=== PATIENT | male | born 1990 | race African-American/Black ===

== ENCOUNTER 2016-09-12 22:52 | Emergency (ER) | payer SELFPAY ==
[~2016-09-12] VITALS: Ht 167.6 cm; Wt 75.0 kg
[~2016-09-12 22:52] MED LIST: DONNTAB12 PO; OMEP20CA5 PO; PRED20 PO; SUCR1TAB6 PO; SULF-154 PO; SULF1TAB47 PO; TRAM50 PO; Z.0.NO CURRENT MEDS; Z.0.UNABLE TO OBTAIN
[2016-09-12 22:53] VITALS: BP 145/91; PULSE 90; RESP 20; TEMP 98.2; O2SAT 98
--- NOTE | 2016-09-12 23:20 | PD ---
HPI Chief Complaint: ENT Complaint Time Seen by Provider: 23:10 Travel History International Travel<30 days: No Contact w/Intl Traveler<30days: No Traveled to known affect area: No History of Present Illness HPI 26-year-old male presents for evaluation of pain and soft tissue swelling to the left earlobe. Symptoms started yesterday. It hurts to palpation. Denies drainage, fevers, chills, trauma. He reports frequent episodes of cyst and abscess formation in the past. He has no other complaints at this time. PFSH Past Medical History ADHD: No Cancer: No Cardiovascular Problems: No Cerebrovascular Accident: No Diabetes: No Diminished Hearing: No Gastrointestinal Disorders: No Genitourinary: No Musculoskeletal: No Neurologic: No Psychiatric: No Reproductive: No Respiratory: No Migraines: No Seizures: No Thyroid Disease: No Ulcer: No Past Surgical History Appendectomy: No Cholecystectomy: No Other Surgery: Yes (DONATED BONE MARROW X2 FOR MOTHER) Social History Alcohol Use: Yes (1 daily) Tobacco Use: Yes (1/2 daily) Substance Use: Yes (MARIJUANA LAST USED YESTERDAY) Allergies-Medications (Allergen,Severity, Reaction): Coded Allergies: No Known Allergies (Verified , 09/12/16) Reported Meds & Prescriptions Reported Meds & Active Scripts Active Keflex (Cephalexin) 500 Mg Cap 500 Mg PO Q8H 7 Days Bactrim DS (Sulfamethoxazole-Trimethoprim) 800-160 Mg Tab 1 Tab PO BID Deltasone (Prednisone) 20 Mg Tab 20 Mg PO BID Septra Ds (Trimethoprim/Sulfamethoxazole) Tab 1 Tab PO BID 1 Tab PO Q8HPRN Carafate (Sucralfate) 1 Gm Tab 1 Gm PO TIDACHS Prilosec 20 mg (Omeprazole) 20 Mg Capcr 1 Tab PO DAILY Ultram (Tramadol HCl) 50 Mg Tab 1 Tab PO Q6HPRN FOR PAIN Ultram (Tramadol HCl) 50 Mg Tab 1 Tab PO Q6HPRN FOR PAIN Bactrim Ds (Trimethoprim/Sulfamethoxazole) Tab 1 Tab PO BID Reported Unable To Obtain Medication History (Miscellaneous Medication) Misc No Current Meds (Miscellaneous Medication) Misc Review of Systems Except as stated in HPI: all other systems reviewed are Neg Physical Exam Narrative GENERAL: Well-developed well-nourished male in no acute distress SKIN: Warm and dry. The patient has a 1 cm area of fluctuance and erythema to the left earlobe. Tender to palpation. No drainage. No puncture wounds. HEAD: Atraumatic. Normocephalic. EYES: Pupils equal and round. No scleral icterus. No injection or drainage. ENT: No nasal bleeding or discharge. Mucous membranes pink and moist. NECK: Trachea midline. No JVD. CARDIOVASCULAR: Regular rate and rhythm. No murmur appreciated. RESPIRATORY: No accessory muscle use. Clear to auscultation. Breath sounds equal bilaterally. Data Data Last Documented VS Vital Signs Date Time Temp Pulse Resp B/P Pulse Ox O2 Delivery O2 Flow Rate FiO2 09/12/16 22:53 98.2 90 20 145/91 98 Orders Lidocai-Epi 1%-1:100,000 Inj (Xylocaine- (09/12/16 23:30) Wound Culture And Gram Stain (09/12/16 23:18) Ibuprofen (Motrin) (09/13/16 00:15) MDM Medical Decision Making Medical Screen Exam Complete: Yes Emergency Medical Condition: Yes Medical Record Reviewed: Yes Differential Diagnosis Infected cyst, abscess, auricular hematoma, cellulitis Narrative Course Incision and drainage was performed, the patient verbally consented, revealing an infected cutaneous cyst. Wound culture was performed. The patient is being discharged with Bactrim and Keflex. He is encouraged to follow-up with a aviation manager or an ENT specialist for definitive surgical cyst removal. Procedures Procedure Narrative INCISION AND DRAINAGE OF CYST: The area was prepped and was sterilely draped. A subcutaneous wheal of 1% Xylocaine with epinephrine with a total number 4 mL was used to anesthetize the area. The area was properly anesthetized. A number 11 scalpel was used to make a 0.3 -cm incision across the area of the abscess. Cultures were obtained. The abscess was drained an irrigated with normal saline. Diagnosis Primary Impression: Infected cyst of skin Additional Instructions: Take the antibiotics as prescribed. Take Tylenol or ibuprofen for discomfort. Warm compresses several times a day 10 minutes at a time. Follow-up with an ENT specialist or aviation manager for definitive cyst removal if desired. Return for any new or worsening symptoms. Med/Other Pt SpecificInfo: Prescription(s) given, Wound Care Scripts Cephalexin (Keflex)500 Mg Uah052 Mg PO Q8H 7 Days Ref 0 Prov:Rahul Navarro MD 09/13/16 Sulfamethoxazole-Trimethoprim (Bactrim DS)800-160 Mg Tab1 Tab PO BID #14 TAB Ref 0 Prov:Rahul Navarro MD 09/13/16 Disposition: 01 DISCHARGE HOME Condition: Stable Capo Mccall Sep 12, 2016 23:20
[2016-09-12] MEDS ORDERED: LIDOCAINE 1%/EPINEPHrine 1:100,000 SOLN 20 ML VIAL INFIL ONE (23:30)
[2016-09-13] MEDS ORDERED: CEPH-460 PO (00:13)
[2016-09-13] MEDS ORDERED: BACT800T5 PO (00:13)
[2016-09-13] MEDS ORDERED: IBUPROFEN 800 MG TAB PO ONE (00:15)
== END 2016-09-13 00:39 | disposition home or self-care (01) ==
LOC: NEPB 22:52
DX: L08.89 Other specified local infections of the skin and subcutaneous tissue (principal); L72.8 Other follicular cysts of the skin and subcutaneous tissue; Z72.0 Tobacco use
CPT/HCPCS: 10060; 86403; 87070

== ENCOUNTER 2016-09-20 20:40 | Emergency (ER) | payer SELFPAY ==
[~2016-09-20] VITALS: Ht 162.6 cm; Wt 70.0 kg
[~2016-09-20 20:40] MED LIST changes: +BACT800T5 PO; +CEPH-460 PO
[2016-09-20 20:41] VITALS: BP 138/78; PULSE 94; RESP 18; TEMP 98.7; O2SAT 98
[2016-09-20 20:44] VITALS: BP_SYST 152; BP_SYST 159; BP_DIAS 86; BP_DIAS 91; RESP 17
[2016-09-20 21:12] LABS: AUTOMATED NEUTROPHIL # 7.8 TH/MM3 (1.8-7.7); BASOPHIL # 0.1 TH/MM3 (0-0.2); BASOPHIL % 0.7 % (0.0-2.0); EOSINOPHIL # 0.2 TH/MM3 (0-0.4); EOSINOPHIL % 1.7 % (0.0-4.0); HEMATOCRIT 45.7 % (39.0-51.0); HEMO FLAGS DIFF FINAL; LYMPH % 28.8 % (9.0-44.0); LYMPHOCYTE # 3.7 TH/MM3 (1.0-4.8); MEAN CELL VOLUME 82.8 FL (80.0-100.0); MEAN CORPUSCULAR HEMOGLOBIN 27.8 PG (27.0-34.0); MEAN CORPUSCULAR HGB CONC 33.5 % (32.0-36.0); MONO % 7.8 % (0.0-8.0); PLATELET COUNT 276 TH/MM3 (150-450); RED BLOOD COUNT 5.52 MIL/MM3 (4.50-5.90); RED CELL DISTRIBUTION WIDTH 14.6 % (11.6-17.2); WHITE BLOOD COUNT 12.7 TH/MM3 (4.0-11.0)
[2016-09-20 21:30] LABS: BLOOD, URINE NEG (NEG); GLUCOSE,URINE NEG (NEG); KETONE, URINE NEG (NEG); NITRITE,URINE NEG (NEG); PH, URINE 5.5 (5.0-8.5); URINE COLOR COLORLESS (YELLW/STRAW)
[2016-09-20 21:37] LABS: COMMENT (UR) CULT NOT INDICATED; CULTURE IF INDICATED CULT NOT INDICATED
[2016-09-20 21:52] LABS: ALKALINE PHOSPHATASE 88 U/L (45-117); ALT (GPT) 28 U/L (12-78); ANION GAP 9 MEQ/L (5-15); AST (GOT) 26 U/L (15-37); BICARBONATE 23.5 MEQ/L (21.0-32.0); BLOOD UREA NITROGEN 6 MG/DL (7-18); CHLORIDE 107 MEQ/L (98-107); GLOMERULAR FILTRATION RATE 160 ML/MIN (>89); POTASSIUM 3.8 MEQ/L (3.5-5.1); SODIUM (NA) 139 MEQ/L (136-145); TOTAL BILIRUBIN ADULT 0.2 MG/DL (0.2-1.0)
--- NOTE | 2016-09-20 22:21 | RADRPT ---
EXAM DATE/TIME: 09/20/2016 22:11 [facility] COMPARISON: No previous studies available for comparison. INDICATIONS : Left wrist pain, fell MEDICAL HISTORY : None. SURGICAL HISTORY : None. ENCOUNTER: Initial ACUITY: 1 day PAIN SCORE: 8/10 LOCATION: Left Wrist FINDINGS: Three view examination of the left wrist demonstrates no soft tissue swelling, dislocation, or fractu re. The carpal bones are in normal alignment. The joint spaces are maintained. Bony mineralization is normal. CONCLUSION: No acute disease. Robert Ambriz MD on September 20, 2016 at 22:19 Board Certified Radiologist. This report was verified electronically.
--- NOTE | 2016-09-20 22:22 | RADRPT ---
EXAM DATE/TIME: 09/20/2016 22:10 [facility] COMPARISON: No previous studies available for comparison. INDICATIONS : Left proximal hand pain, fell MEDICAL HISTORY : None. SURGICAL HISTORY : None. ENCOUNTER: Initial ACUITY: 1 day PAIN SCORE: 8/10 LOCATION: Left Hand FINDINGS: Three view examination of the left hand demonstrates no soft tissue swelling, dislocation, or fractur e. The carpal bones appear intact. The interphalangeal and metacarpophalangeal joints are intact. Bony mineralization is normal. CONCLUSION: No acute disease. Robert Ambriz MD on September 20, 2016 at 22:20 Board Certified Radiologist. This report was verified electronically.
--- NOTE | 2016-09-20 22:50 | PD ---
HPI Chief Complaint: Syncope/Near-Syncope Time Seen by Provider: 21:06 Travel History International Travel<30 days: No Contact w/Intl Traveler<30days: No Traveled to known affect area: No History of Present Illness HPI The patient is 26 years old. He arrives from home after he experienced a loss of consciousness. He was cooking and fell to the ground landing primarily on his left wrist. He does not recall the events which followed however his significant other can provide the story. Evidently he was helped to his bed and then he tried to get himself out of bed in order to finish cooking. He fell to the ground yet again tried to help himself up however failed. He did return to normal after about 10 minutes of apparent altered mentation. Prior to the onset of this episode he had no diaphoresis, palpitations, shortness of breath, chest pain, headache or lightheadedness. He has no history of structural heart disease or any family history of sudden onset cardiac related . He denies any drug abuse however has tested positive on prior drug screens here for cannabis twice. He states he drinks about 2 cans of beer daily and smokes half pack of cigarettes daily. He works as a restaurant kitchen and service manager. He states he does not drink enough water daily and his significant other states the same. PFSH Past Medical History ADHD: No Cancer: No Cardiovascular Problems: No Cerebrovascular Accident: No Diabetes: No Diminished Hearing: No Gastrointestinal Disorders: No Genitourinary: No Musculoskeletal: No Neurologic: No Psychiatric: No Reproductive: No Respiratory: No Migraines: No Seizures: No Thyroid Disease: No Ulcer: No Past Surgical History Appendectomy: No Cholecystectomy: No Other Surgery: Yes (DONATED BONE MARROW X2 FOR MOTHER) Social History Alcohol Use: Yes (1 daily) Tobacco Use: Yes (1/2 daily) Substance Use: Yes (MARIJUANA LAST USED YESTERDAY) Allergies-Medications (Allergen,Severity, Reaction): Coded Allergies: No Known Allergies (Verified , 09/12/16) Reported Meds & Prescriptions Reported Meds & Active Scripts Active Keflex (Cephalexin) 500 Mg Cap 500 Mg PO Q8H 7 Days Bactrim DS (Sulfamethoxazole-Trimethoprim) 800-160 Mg Tab 1 Tab PO BID Deltasone (Prednisone) 20 Mg Tab 20 Mg PO BID Septra Ds (Trimethoprim/Sulfamethoxazole) Tab 1 Tab PO BID 1 Tab PO Q8HPRN Carafate (Sucralfate) 1 Gm Tab 1 Gm PO TIDACHS Prilosec 20 mg (Omeprazole) 20 Mg Capcr 1 Tab PO DAILY Ultram (Tramadol HCl) 50 Mg Tab 1 Tab PO Q6HPRN FOR PAIN Ultram (Tramadol HCl) 50 Mg Tab 1 Tab PO Q6HPRN FOR PAIN Bactrim Ds (Trimethoprim/Sulfamethoxazole) Tab 1 Tab PO BID Reported Unable To Obtain Medication History (Miscellaneous Medication) Misc No Current Meds (Miscellaneous Medication) Misc Review of Systems Except as stated in HPI: all other systems reviewed are Neg Musculoskeletal: Positive: Pain Neurologic: Positive: Syncope, Change in Mentation Physical Exam Narrative GENERAL: 26-year-old male well-nourished well-developed SKIN: Warm and dry. HEAD: Atraumatic. Normocephalic. EYES: Pupils equal and round. No scleral icterus. No injection or drainage. ENT: No nasal bleeding or discharge. Mucous membranes pink and moist. NECK: Trachea midline. No JVD. CARDIOVASCULAR: Regular rate and rhythm. No murmur appreciated. RESPIRATORY: No accessory muscle use. Clear to auscultation. Breath sounds equal bilaterally. GASTROINTESTINAL: Abdomen soft, non-tender, nondistended. Hepatic and splenic margins not palpable. MUSCULOSKELETAL: No obvious deformities. No clubbing. No cyanosis. No edema. No snuffbox tenderness on the left side are either side. Minimal tenderness along the ulnar aspect of the distal forearm on the left side. Handgrip 5 over 5 bilaterally. NEUROLOGICAL: Awake and alert. No obvious cranial nerve deficits. Motor grossly within normal limits. Normal speech. PSYCHIATRIC: Appropriate mood and affect; insight and judgment normal. Data Data Last Documented VS Vital Signs Date Time Temp Pulse Resp B/P Pulse Ox O2 Delivery O2 Flow Rate FiO2 09/20/16 20:44 103 17 152/86 100 17 159/91 09/20/16 20:44 Room Air 09/20/16 20:41 98.7 98 No evidence of orthostasis. Pulse improved on my exam to the 80s Orders Complete Blood Count With Diff (09/20/16 20:55) Comprehensive Metabolic Panel (09/20/16 20:55) Urinalysis - C+S If Indicated (09/20/16 20:55) Electrocardiogram (09/20/16 ) Wrist, Complete ([id number]) (09/20/16 ) Hand, Complete ([id number]) (09/20/16 ) ^ Randall Bandage (09/20/16 22:46) Labs Laboratory Tests Test 09/20/16 20:50 White Blood Count 12.7 TH/MM3 Red Blood Count 5.52 MIL/MM3 Hemoglobin 15.3 GM/DL Hematocrit 45.7 % Mean Corpuscular Volume 82.8 FL Mean Corpuscular Hemoglobin 27.8 PG Mean Corpuscular Hemoglobin 33.5 % Concent Red Cell Distribution Width 14.6 % Platelet Count 276 TH/MM3 Mean Platelet Volume 9.0 FL Neutrophils (%) (Auto) 61.0 % Lymphocytes (%) (Auto) 28.8 % Monocytes (%) (Auto) 7.8 % Eosinophils (%) (Auto) 1.7 % Basophils (%) (Auto) 0.7 % Neutrophils # (Auto) 7.8 TH/MM3 Lymphocytes # (Auto) 3.7 TH/MM3 Monocytes # (Auto) 1.0 TH/MM3 Eosinophils # (Auto) 0.2 TH/MM3 Basophils # (Auto) 0.1 TH/MM3 CBC Comment DIFF FINAL Differential Comment Urine Color COLORLESS Urine Turbidity CLEAR Urine pH 5.5 Urine Specific [place] 1.004 Urine Protein NEG mg/dL Urine Glucose (UA) NEG mg/dL Urine Ketones NEG mg/dL Urine Occult Blood NEG Urine Nitrite NEG Urine Bilirubin NEG Urine Urobilinogen LESS THAN 2.0 MG/DL Urine Leukocyte Esterase NEG Urine WBC LESS THAN 1 /hpf Microscopic Urinalysis Comment CULT NOT INDICATED Sodium Level 139 MEQ/L Potassium Level 3.8 MEQ/L Chloride Level 107 MEQ/L Carbon Dioxide Level 23.5 MEQ/L Anion Gap 9 MEQ/L Blood Urea Nitrogen 6 MG/DL Creatinine 0.72 MG/DL Estimat Glomerular Filtration 160 ML/MIN Rate Random Glucose 76 MG/DL Calcium Level 8.0 MG/DL Total Bilirubin 0.2 MG/DL Aspartate Amino Transf 26 U/L (AST/SGOT) Alanine Aminotransferase 28 U/L (ALT/SGPT) Alkaline Phosphatase 88 U/L Total Protein 7.8 GM/DL Albumin 3.9 GM/DL MDM Medical Decision Making Medical Screen Exam Complete: Yes Emergency Medical Condition: Yes Medical Record Reviewed: Yes Differential Diagnosis Arrhythmia, EtOH intoxication, fall, syncope, polysubstance abuse, dehydration Narrative Course CBC & BMP Diagram 09/20/16 20:50 LFTs normal Urinalysis normal EKG reveals no pre-excitation morphology or evidence of structural heart disease Last 24 hours Impressions Wrist X-Ray 09/20/16 0000 Signed Impressions: Service Date/Time: Tuesday, September 20, 2016 22:11 - CONCLUSION: No acute disease. Robert Ambriz MD Hand X-Ray 09/20/16 0000 Signed Impressions: Service Date/Time: Tuesday, September 20, 2016 22:10 - CONCLUSION: No acute disease. Robert Ambriz MD Left hand x-ray: No fracture Left wrist x-ray: No fracture We discussed possible etiologies for the patient's apparent loss of consciousness. Certainly does not sound like a seizure given the coordinated attempt to finish cooking afterwards. Arrhythmogenic event as a consideration however less likely with a normal EKG and no personal or family history of arrhythmia or heart disease of which the patient is aware. 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 Patient does not have symptoms consistent with an occult scaphoid fracture. Return precautions discussed. Patient verbalized appreciation and is now ready for discharge. Diagnosis Primary Impression: LOC (loss of consciousness) Additional Impression: Left wrist injury Qualified Code: S69.92XA - Left wrist injury, initial encounter Referrals: Punch Molder 2 days Primary Care Physician 2 days Additional Instructions: You have a choice when it comes to health care, and we are glad that you chose [facility]. Hopefully, we have met your expectations on today's visit. You are welcome to return to [facility] at any time, as we are committed to meeting the health care needs of our community. Disposition: 01 DISCHARGE HOME Condition: Stable Rahul Navarro MD Sep 20, 2016 22:50
--- NOTE | 2016-09-21 10:45 | EKG ---
Date Performed: 09/20/2016 Time Performed: 20:49:34 PTAGE: 26 years EKG: Sinus rhythm LEFT ATRIAL ABNORMALITY RESOLVED FROM THE PRIOR TRACING NORMAL ECG PREVIOUS TRACING : 01/20/2016 21.08 DOCTOR: Praful Mauricio Interpretating Date/Time 09/21/2016 10:44:21
== END 2016-09-20 23:02 | disposition home or self-care (01) ==
LOC: NEDAMB 20:40
DX: R55 Syncope and collapse (principal); S69.92XA Unspecified injury of left wrist, hand and finger(s), initial encounter; F17.210 Nicotine dependence, cigarettes, uncomplicated; F12.90 Cannabis use, unspecified, uncomplicated; W18.39XA Other fall on same level, initial encounter; Y93.G3 Activity, cooking and baking; Y92.000 Kitchen of unspecified non-institutional (private) residence as the place of occurrence of the external cause
CPT/HCPCS: 73110; 73130; 80053; 81001; 85025; 93005

== ENCOUNTER 2016-11-26 01:15 | Emergency (ER) | payer OTHER ==
[~2016-11-26] VITALS: Ht 175.3 cm; Wt 85.0 kg
[2016-11-26 01:24] VITALS: BP 152/80; PULSE 102; RESP 16; TEMP 99; O2SAT 95
--- NOTE | 2016-11-26 01:34 | PD ---
HPI Chief Complaint: Psychiatric Symptoms Time Seen by Provider: 01:20 Travel History International Travel<30 days: No Contact w/Intl Traveler<30days: No Traveled to known affect area: No History of Present Illness HPI This is a 26-year-old male who presents under Castillo act initiated by [place] [employer]. According to his paperwork the patient called 911 and reported that he wanted to kill himself. When the police arrived he had already tied a rope to a tree and had fetched a chair. He was intending to hang himself. The patient reports that for the past 1.5 weeks he has been feeling depressed and suicidal. He reports that nothing in particular made him start feeling this way. He does endorse a desire to kill himself tonight. He denies any toxic ingestions, drug or alcohol use. He reports that 1 time approximately 7 years ago he attempted to kill himself by pushing a china cabinet on top of himself. He does not currently have a primary care physician and he does not see a psychiatrist. The patient seems somewhat hesitant to share information at this time. He has no medical complaints at this time. COUNT INCLUDES THE [facility] Past Medical History Medical History: Denies Significant Hx ADHD: No Cancer: No Cardiovascular Problems: No Cerebrovascular Accident: No Diabetes: No Diminished Hearing: No Gastrointestinal Disorders: No Genitourinary: No Musculoskeletal: No Neurologic: No Psychiatric: No Reproductive: No Respiratory: No Migraines: No Seizures: No Thyroid Disease: No Ulcer: No Influenza Vaccination: No Past Surgical History Appendectomy: No Cholecystectomy: No Other Surgery: Yes (DONATED BONE MARROW X2 FOR MOTHER 2009) Social History Alcohol Use: Yes (1 daily) Tobacco Use: Yes (1/2 daily) Substance Use: Yes (MARIJUANA ) Allergies-Medications (Allergen,Severity, Reaction): Coded Allergies: No Known Allergies (Verified , 09/12/16) Reported Meds & Prescriptions Reported Meds & Active Scripts Active No Active Prescriptions or Reported Medications Review of Systems Except as stated in HPI: all other systems reviewed are Neg Physical Exam Narrative GENERAL: Well-developed well-nourished male in no acute distress SKIN: Warm and dry. HEAD: Atraumatic. Normocephalic. EYES: Pupils equal and round. No scleral icterus. No injection or drainage. ENT: No nasal bleeding or discharge. Mucous membranes pink and moist. NECK: Trachea midline. No JVD. CARDIOVASCULAR: Regular rate and rhythm. No murmur appreciated. RESPIRATORY: No accessory muscle use. Clear to auscultation. Breath sounds equal bilaterally. GASTROINTESTINAL: Abdomen soft, non-tender, nondistended. Hepatic and splenic margins not palpable. MUSCULOSKELETAL: No obvious deformities. No clubbing. No cyanosis. No edema. NEUROLOGICAL: Awake and alert. No obvious cranial nerve deficits. Motor grossly within normal limits. Normal speech. PSYCHIATRIC: Depressed mood. Insight and judgment appears normal. Makes poor eye contact. Data Data Last Documented VS Vital Signs Date Time Temp Pulse Resp B/P Pulse Ox O2 Delivery O2 Flow Rate FiO2 11/26/16 01:24 99.0 102 16 152/80 95 Orders Complete Blood Count With Diff (11/26/16 01:30) Comprehensive Metabolic Panel (11/26/16 01:30) Psych Screen (11/26/16 01:30) Drug Screen, Random Urine (11/26/16 01:30) Alcohol (Ethanol) (11/26/16 01:30) Salicylates (Aspirin) (11/26/16 01:30) Tylenol (Acetaminophen) (11/26/16 01:30) ^ Sitter (11/26/16 01:31) Labs Laboratory Tests Test 11/26/16 01:30 White Blood Count 12.7 TH/MM3 Red Blood Count 5.85 MIL/MM3 Hemoglobin 16.2 GM/DL Hematocrit 48.6 % Mean Corpuscular Volume 83.0 FL Mean Corpuscular Hemoglobin 27.7 PG Mean Corpuscular Hemoglobin 33.3 % Concent Red Cell Distribution Width 14.9 % Platelet Count 231 TH/MM3 Mean Platelet Volume 9.5 FL Neutrophils (%) (Auto) 58.4 % Lymphocytes (%) (Auto) 28.4 % Monocytes (%) (Auto) 10.4 % Eosinophils (%) (Auto) 2.3 % Basophils (%) (Auto) 0.5 % Neutrophils # (Auto) 7.4 TH/MM3 Lymphocytes # (Auto) 3.6 TH/MM3 Monocytes # (Auto) 1.3 TH/MM3 Eosinophils # (Auto) 0.3 TH/MM3 Basophils # (Auto) 0.1 TH/MM3 CBC Comment DIFF FINAL Differential Comment Sodium Level 139 MEQ/L Potassium Level 3.7 MEQ/L Chloride Level 105 MEQ/L Carbon Dioxide Level 23.6 MEQ/L Anion Gap 10 MEQ/L Blood Urea Nitrogen 10 MG/DL Creatinine 0.88 MG/DL Estimat Glomerular Filtration 127 ML/MIN Rate Random Glucose 90 MG/DL Calcium Level 8.6 MG/DL Total Bilirubin 0.3 MG/DL Aspartate Amino Transf 29 U/L (AST/SGOT) Alanine Aminotransferase 32 U/L (ALT/SGPT) Alkaline Phosphatase 93 U/L Total Protein 8.6 GM/DL Albumin 4.2 GM/DL Salicylates Level 3.2 MG/DL Acetaminophen Level LESS THAN 2.0 MCG/ML Ethyl Alcohol Level 168 MG/DL [facility] Medical Decision Making Medical Screen Exam Complete: Yes Emergency Medical Condition: Yes Medical Record Reviewed: Yes Differential Diagnosis Major depressive disorder, depressive disorder not otherwise specified, adjustment reaction, acute psychosis, substance induced mood disorder, bipolar disorder Narrative Course 26-year-old male presents under Castillo act for suicidal ideation. Mental health screening discussed with the patient. Psychiatric screen ordered. A sitter has been ordered. Alcohol level is 168, otherwise lab work is unremarkable. The patient is medically cleared for psychiatric disposition. Diagnosis Primary Impression: Suicidal ideation Scripts No Active Prescriptions or Reported Meds Capo Mccall Nov 26, 2016 01:34
[2016-11-26 01:46] LABS: AUTOMATED NEUTROPHIL # 7.4 TH/MM3 (1.8-7.7); BASOPHIL # 0.1 TH/MM3 (0-0.2); BASOPHIL % 0.5 % (0.0-2.0); EOSINOPHIL # 0.3 TH/MM3 (0-0.4); EOSINOPHIL % 2.3 % (0.0-4.0); HEMATOCRIT 48.6 % (39.0-51.0); HEMO FLAGS DIFF FINAL; LYMPH % 28.4 % (9.0-44.0); LYMPHOCYTE # 3.6 TH/MM3 (1.0-4.8); MEAN CORPUSCULAR HEMOGLOBIN 27.7 PG (27.0-34.0); MEAN CORPUSCULAR HGB CONC 33.3 % (32.0-36.0); MONO % 10.4 % (0.0-8.0); NEUT % 58.4 % (16.0-70.0); PLATELET COUNT 231 TH/MM3 (150-450); RED BLOOD COUNT 5.85 MIL/MM3 (4.50-5.90); RED CELL DISTRIBUTION WIDTH 14.9 % (11.6-17.2); WHITE BLOOD COUNT 12.7 TH/MM3 (4.0-11.0)
[2016-11-26 02:17] LABS: ANION GAP 10 MEQ/L (5-15)
[2016-11-26 02:24] LABS: ALKALINE PHOSPHATASE 93 U/L (45-117); ALT (GPT) 32 U/L (12-78); AST (GOT) 29 U/L (15-37); BICARBONATE 23.6 MEQ/L (21.0-32.0); BLOOD UREA NITROGEN 10 MG/DL (7-18); CHLORIDE 105 MEQ/L (98-107); GLOMERULAR FILTRATION RATE 127 ML/MIN (>89); POTASSIUM 3.7 MEQ/L (3.5-5.1); SODIUM (NA) 139 MEQ/L (136-145); TOTAL BILIRUBIN ADULT 0.3 MG/DL (0.2-1.0)
[2016-11-26 02:29] LABS: ACETAMINOPHEN LESS THAN 2.0 MCG/ML (10.0-30.0)
[2016-11-26 08:31] VITALS: BP 132/72; PULSE 76; RESP 16; O2SAT 100
--- NOTE | 2016-11-26 10:29 | PD ---
History of Present Illness Chief Complaint: Psychiatric Symptoms Time Seen by Provider: 10:00 Travel History International Travel<30 Days: No Contact w/Intl Traveler<30days: No Known affected area: No Legal Status Legal Status: Castillo Act Castillo Act Signed By: Figueroa Abebe History of Present Illness: This is a 26-year-old male who presented last evening with thoughts of suicide by hanging himself. He was Castillo acted, reportedly in the process of hanging himself. At this time, the patient is denying any suicidal ideation, plan or intention. He would like to go home. This physician reviewed his medical record and determined that he has reportedly attempted suicide 7 years ago. Patient admits to this but in the next breath is verbally francine for safety at this time. He lives with his grandmother and would like to return to her. He denies any ingestion of alcohol or drugs but has not produce enough urine for a toxicology screen. He works part-time as a acetylene torch operator and would like to work full-time. He is also hungry and asking for food. He has siblings that live in [place] and his grandmother who lives locally. Patient also reports that he has friends who are supportive. He cannot say why he felt suicidal last night and can only deny that feeling at the present time, despite multiple questions from this physician. PFSH Past Medical History Medical History: Denies Significant Hx ADHD: No Cancer: No Cardiovascular Problems: No Cerebrovascular Accident: No Diabetes: No Diminished Hearing: No Gastrointestinal Disorders: No Genitourinary: No Musculoskeletal: No Neurologic: No Psychiatric: No Reproductive: No Respiratory: No Migraines: No Seizures: No Thyroid Disease: No Ulcer: No Influenza Vaccination: No Past Surgical History Appendectomy: No Cholecystectomy: No Other Surgery: Yes (DONATED BONE MARROW X2 FOR MOTHER) Psychiatric History Psychiatric History Hx Psychiatric Treatment: PT DENIES CURRENT TREATMENT History of Inpatient Treatment: Yes Guns or firearms in home: No Social History Hx Alcohol Use: Yes (1 daily) Hx Tobacco Use: Yes (1/2 daily) Hx Substance Use: Yes (MARIJUANA , ALCOHOL) Substance Use Type: Alcohol, Marijuana Allergies-Medications (Allergen,Severity, Reaction): Coded Allergies: No Known Allergies (Verified , 09/12/16) Reported Meds & Prescriptions Reported Meds & Active Scripts Active No Active Prescriptions or Reported Medications Review of Systems ROS Limitations: Clinical Condition Except as stated in HPI: all other systems reviewed are Neg Exam Exam Limitations: Clinical Condition Alert: Yes [place]: Person, Place, Date, Situation Mood: Calm Affect: Appropriate Speech: Clear, Logical Eye Contact: Normal Memory Intact: Immediate, Recent, Remote Insight/Judgement Adequate MDM Medical Decision Making Medical Record Reviewed: Yes Assessment/Plan Patient is a graduate is being lifted. Although he presented under a Castilol act for a reported suicide attempt, he is currently denying suicidal ideation or plan, vehemently. He is a competent adult and this physician feels he has the right to go home after verbally francine for safety. He does not meet admission criteria at this time. This physician is concerned the patient may have been using alcohol or drugs even though he denies it. He has a parent history of alcohol and drug use. In either case, he does not meet involuntary psychiatric hospitalization criteria at this time. This physician did suggest outpatient follow up at [facility], [place]. Orders Complete Blood Count With Diff (11/26/16 01:30) Comprehensive Metabolic Panel (11/26/16 01:30) Psych Screen (11/26/16 01:30) Drug Screen, Random Urine (11/26/16 01:30) Alcohol (Ethanol) (11/26/16 01:30) Salicylates (Aspirin) (11/26/16 01:30) Tylenol (Acetaminophen) (11/26/16 01:30) ^ Sitter (11/26/16 01:31) Results Vital Signs Date Time Temp Pulse Resp B/P Pulse Ox O2 Delivery O2 Flow Rate FiO2 11/26/16 08:31 76 16 132/72 100 Room Air 11/26/16 08:31 76 16 11/26/16 01:24 99.0 102 16 152/80 95 Laboratory Tests Test 11/26/16 01:30 White Blood Count 12.7 Red Blood Count 5.85 Hemoglobin 16.2 Hematocrit 48.6 Mean Corpuscular Volume 83.0 Mean Corpuscular Hemoglobin 27.7 Mean Corpuscular Hemoglobin 33.3 Concent Red Cell Distribution Width 14.9 Platelet Count 231 Mean Platelet Volume 9.5 Neutrophils (%) (Auto) 58.4 Lymphocytes (%) (Auto) 28.4 Monocytes (%) (Auto) 10.4 Eosinophils (%) (Auto) 2.3 Basophils (%) (Auto) 0.5 Neutrophils # (Auto) 7.4 Lymphocytes # (Auto) 3.6 Monocytes # (Auto) 1.3 Eosinophils # (Auto) 0.3 Basophils # (Auto) 0.1 CBC Comment DIFF FINAL Differential Comment Sodium Level 139 Potassium Level 3.7 Chloride Level 105 Carbon Dioxide Level 23.6 Anion Gap 10 Blood Urea Nitrogen 10 Creatinine 0.88 Estimat Glomerular Filtration 127 Rate Random Glucose 90 Calcium Level 8.6 Total Bilirubin 0.3 Aspartate Amino Transf 29 (AST/SGOT) Alanine Aminotransferase 32 (ALT/SGPT) Alkaline Phosphatase 93 Total Protein 8.6 Albumin 4.2 Salicylates Level 3.2 Acetaminophen Level LESS THAN 2.0 Ethyl Alcohol Level 168 Diagnosis Primary Impression: Adjustment disorder with mixed disturbance of emotions and conduct Referrals: [facility] (Out patient) Departure Forms: Tests/Procedures Patient Instructions: General Instructions Additional Instructions: Please follow up with [facility]. Please call for an out pt appointment Prescriptions No Active Prescriptions or Reported Meds Disposition: 01 DISCHARGE HOME Condition: Stable Torsten Hernandez MD Nov 26, 2016 10:29
== END 2016-11-26 10:23 | disposition home or self-care (01) ==
LOC: NEPD 01:15
DX: F43.25 Adjustment disorder with mixed disturbance of emotions and conduct (principal)
CPT/HCPCS: 80053; 80307; 85025; 99284

== ENCOUNTER 2018-01-13 17:36 | Emergency (ER) | payer SELFPAY ==
[~2018-01-13] VITALS: Ht 162.6 cm; Wt 70.0 kg
[2018-01-13 17:39] VITALS: BP 140/82; PULSE 83; RESP 16; TEMP 98.3; O2SAT 98
[2018-01-13] MEDS ORDERED: SODIUM CHLOR 0.9% 1000 ML INJ 1,000 ML IV SCH (18:14)
[2018-01-13] MEDS ORDERED: SODIUM CHLORIDE 0.9% FLUSH 10 ML FLUSH IV FLUSH PRN (18:15)
[2018-01-13] MEDS ORDERED: ONDANSETRON ODT 4 MG TAB PO ONE (18:15)
--- NOTE | 2018-01-13 18:45 | PD ---
HPI Chief Complaint: GI Complaint Time Seen by Provider: 17:58 Travel History International Travel<30 days: No Contact w/Intl Traveler<30days: No Traveled to known affect area: No History of Present Illness HPI This is a 27-year-old male presents today with complaints of abdominal pain with associated nausea vomiting diarrhea. The patient works in the food porter industry. He states while he is at work, his boss noted him to be running to the bathroom multiple times. He states that he was sent home and told to come to be evaluated. Patient denies any fevers, chills. He denies any suspicious foods. The patient denies any ill contacts. He denies any urinary symptoms. There are no other complaints at the time of my examination. PFSH Past Medical History Medical History: Denies Significant Hx ADHD: No Cancer: No Cardiovascular Problems: No Cerebrovascular Accident: No Diabetes: No Diminished Hearing: No Gastrointestinal Disorders: No Genitourinary: No Musculoskeletal: No Neurologic: No Psychiatric: No Reproductive: No Respiratory: No Immunizations Current: Yes Migraines: No Seizures: No Thyroid Disease: No Ulcer: No Tetanus Vaccination: < 5 Years Influenza Vaccination: No Past Surgical History Surgical History: No Previous Surgery Appendectomy: No Cholecystectomy: No Oral Surgery: Yes (WISDOM TEETH REMOVED X4) Other Surgery: Yes (DONATED BONE MARROW X2 FOR MOTHER 2010) Social History Alcohol Use: Yes (Denies) Tobacco Use: Yes (1/2 daily) Substance Use: Yes (hx MARIJUANA , ALCOHOL) Allergies-Medications (Allergen,Severity, Reaction): Coded Allergies: No Known Allergies (Verified , 09/12/16) Reported Meds & Prescriptions Reported Meds & Active Scripts Active Zofran Odt (Ondansetron Odt) 4 Mg Tab 4 Mg SL Q8HR PRN Review of Systems Except as stated in HPI: all other systems reviewed are Neg General / Constitutional: No: Fever, Chills HENT: No: Headaches, Vertigo, Lightheadedness Cardiovascular: No: Chest Pain or Discomfort, Palpitations, Tachycardia Respiratory: No: Cough, Shortness of Breath Gastrointestinal: Positive: Nausea, Vomiting, Diarrhea, Abdominal Pain Genitourinary: No: Dysuria (Periumbilical), Incontinence Musculoskeletal: No: Weakness, Pain Neurologic: No: Weakness, Dizziness, Headache Physical Exam Narrative GENERAL: Well-nourished, well-developed patient, in no acute respiratory distress. SKIN: Focused skin assessment warm/dry. HEAD: Normocephalic/atraumatic. EYES: No scleral icterus. No injection or drainage. NECK: Supple, trachea midline. CARDIOVASCULAR: Regular rate and rhythm without murmurs, gallops, or rubs. RESPIRATORY: Breath sounds equal bilaterally. No accessory muscle use. GASTROINTESTINAL: Abdomen soft, nondistended. Patient has minimal periumbilical tenderness to palpation. There is no rebound or guarding. MUSCULOSKELETAL: No cyanosis, or edema. BACK: Nontender without obvious deformity. No CVA tenderness. NEUROLOGICAL: Awake and alert. Cranial nerves II through XII intact. Motor grossly within normal limits. Five out of 5 muscle strength in all muscle groups. Normal speech. Data Data Last Documented VS Vital Signs Date Time Temp Pulse Resp B/P (MAP) Pulse Ox O2 Delivery O2 Flow Rate FiO2 01/13/18 17:39 98.3 83 16 140/82 (101) 98 Orders Orders Complete Blood Count With Diff (01/13/18 18:14) Comprehensive Metabolic Panel (01/13/18 18:14) Lipase (01/13/18 18:14) Urinalysis - C+S If Indicated (01/13/18 18:14) Iv Access Insert/Monitor (01/13/18 18:14) Ecg Monitoring (01/13/18 18:14) Oximetry (01/13/18 18:14) Sodium Chlor 0.9% 1000 Ml Inj (Ns 1000 M (01/13/18 18:14) Sodium Chloride 0.9% Flush (Ns Flush) (01/13/18 18:15) Ondansetron Odt (Zofran Odt) (01/13/18 18:15) Sodium Chlor 0.9% 1000 Ml Inj (Ns 1000 M (01/13/18 19:15) Dicyclomine Inj (Bentyl Inj) (01/13/18 19:15) Labs Laboratory Tests Test 01/13/18 18:30 01/13/18 19:40 White Blood Count 6.8 TH/MM3 Red Blood Count 5.45 MIL/MM3 Hemoglobin 15.1 GM/DL Hematocrit 44.9 % Mean Corpuscular Volume 82.4 FL Mean Corpuscular Hemoglobin 27.7 PG Mean Corpuscular Hemoglobin Concent 33.6 % Red Cell Distribution Width 14.1 % Platelet Count 269 TH/MM3 Mean Platelet Volume 9.3 FL Neutrophils (%) (Auto) 56.6 % Lymphocytes (%) (Auto) 29.4 % Monocytes (%) (Auto) 10.3 % Eosinophils (%) (Auto) 2.7 % Basophils (%) (Auto) 1.0 % Neutrophils # (Auto) 3.9 TH/MM3 Lymphocytes # (Auto) 2.0 TH/MM3 Monocytes # (Auto) 0.7 TH/MM3 Eosinophils # (Auto) 0.2 TH/MM3 Basophils # (Auto) 0.1 TH/MM3 CBC Comment DIFF FINAL Differential Comment Blood Urea Nitrogen 5 MG/DL Creatinine 0.71 MG/DL Random Glucose 90 MG/DL Total Protein 7.7 GM/DL Albumin 3.7 GM/DL Calcium Level 8.6 MG/DL Alkaline Phosphatase 80 U/L Aspartate Amino Transf (AST/SGOT) 28 U/L Alanine Aminotransferase (ALT/SGPT) 28 U/L Total Bilirubin 0.2 MG/DL Sodium Level 135 MEQ/L Potassium Level 3.9 MEQ/L Chloride Level 101 MEQ/L Carbon Dioxide Level 24.8 MEQ/L Anion Gap 9 MEQ/L Estimat Glomerular Filtration Rate 161 ML/MIN Lipase 275 U/L [facility] Medical Decision Making Medical Screen Exam Complete: Yes Emergency Medical Condition: Yes Differential Diagnosis Gastroenteritis versus appendicitis versus pancreatitis Narrative Course 27-year-old male presents with nausea vomiting diarrhea. Patient has a benign abdomen. There is no rebound guarding. White count is within normal limits. LFTs are within normal limits. Patient to given 2 L of IV fluid 10 mg of IM Bentyl and Zofran. He states he feels much improved. He will be discharged with a prescription for Zofran. He has been instructed return to be develops any worsening symptoms. Diagnosis Primary Impression: Nausea vomiting and diarrhea Additional Instructions: Increase fluid intake. Return if feeling worse. Med/Other Pt SpecificInfo: Prescription(s) given Scripts Ondansetron Odt (Zofran Odt) 4 Mg Tab 4 MG SL Q8HR Y for Nausea/Vomiting, #10 TAB 0 Refills Prov: Joe Jacome MD 01/13/18 Disposition: 01 DISCHARGE HOME Condition: Stable Joe Jacome MD Jan 13, 2018 18:45
[2018-01-13 18:49] LABS: AUTOMATED NEUTROPHIL # 3.9 TH/MM3 (1.8-7.7); BASOPHIL # 0.1 TH/MM3 (0-0.2); EOSINOPHIL # 0.2 TH/MM3 (0-0.4); EOSINOPHIL % 2.7 % (0.0-4.0); HEMATOCRIT 44.9 % (39.0-51.0); HEMOGLOBIN 15.1 GM/DL (13.0-17.0); LYMPH % 29.4 % (9.0-44.0); MEAN CELL VOLUME 82.4 FL (80.0-100.0); MEAN CORPUSCULAR HEMOGLOBIN 27.7 PG (27.0-34.0); MEAN CORPUSCULAR HGB CONC 33.6 % (32.0-36.0); MEAN PLATELET VOLUME 9.3 FL (7.0-11.0); MONO % 10.3 % (0.0-8.0); MONOCYTE # 0.7 TH/MM3 (0-0.9); NEUT % 56.6 % (16.0-70.0); PLATELET COUNT 269 TH/MM3 (150-450); RED BLOOD COUNT 5.45 MIL/MM3 (4.50-5.90); RED CELL DISTRIBUTION WIDTH 14.1 % (11.6-17.2); WHITE BLOOD COUNT 6.8 TH/MM3 (4.0-11.0)
[2018-01-13 19:08] LABS: ALBUMIN 3.7 GM/DL (3.4-5.0); AST (GOT) 28 U/L (15-37); BICARBONATE 24.8 MEQ/L (21.0-32.0); BLOOD UREA NITROGEN 5 MG/DL (7-18); CALCIUM 8.6 MG/DL (8.5-10.1); CHLORIDE 101 MEQ/L (98-107); CREATININE 0.71 MG/DL (0.60-1.30); GLOMERULAR FILTRATION RATE 161 ML/MIN (>89); GLUCOSE,RANDOM 90 MG/DL (74-106); SODIUM (NA) 135 MEQ/L (136-145)
[2018-01-13 19:10] LABS: ALT (GPT) 28 U/L (12-78)
[2018-01-13 19:12] LABS: ALKALINE PHOSPHATASE 80 U/L (45-117); TOTAL BILIRUBIN ADULT 0.2 MG/DL (0.2-1.0); TOTAL PROTEIN 7.7 GM/DL (6.4-8.2)
[2018-01-13] MEDS ORDERED: SODIUM CHLOR 0.9% 1000 ML INJ 1,000 ML IV ONE (19:15)
[2018-01-13] MEDS ORDERED: DICYCLOMINE HCL 20 MG/2 ML VIAL IM ONE (19:15)
[2018-01-13] MEDS ORDERED: ZOFR4TAB3 SL (20:00)
[2018-01-13 20:24] LABS: BILIRUBIN, URINE NEG (NEG); BLOOD, URINE NEG (NEG); GLUCOSE,URINE NEG (NEG); KETONE, URINE NEG (NEG); NITRITE,URINE NEG (NEG); PH, URINE 6.5 (5.0-8.5); URINE COLOR LIGHT-YELLOW (YELLW/STRAW); URINE LEUKOCYTE ESTERASE NEG (NEG)
== END 2018-01-13 20:13 | disposition home or self-care (01) ==
LOC: NEPC 17:36
DX: R11.2 Nausea with vomiting, unspecified (principal); R19.7 Diarrhea, unspecified; F12.90 Cannabis use, unspecified, uncomplicated; Z72.0 Tobacco use
CPT/HCPCS: 80053; 81001; 83690; 85025; 96360; 96372; 99284; J0500; J7030